=== PATIENT | female | born 1995 | race American Indian/Alaskan Native ===

== ENCOUNTER 2016-12-15 13:02 | Emergency (ER) | payer MEDICAID ==
[2016-12-15 14:57] LABS: Basophils % (Auto) 0.3 % (0.0-1.8); Mean Corpuscular HGB Conc 34 % (30-34); Mean Corpuscular Hemoglobin 28 pg (28-32); Mean Corpuscular Volume 82 fl (79-97); Platelet Count 306 K/mm3 (140-440); Red Blood Count 4.66 M/mm3 (3.65-5.03); Red Cell Distribution Width 13.4 % (13.2-15.2); White Blood Count 7.6 K/mm3 (4.5-11.0)
[2016-12-15 15:37] LABS: Bilirubin,Urine NEG (Negative); Blood,Urine NEG (Negative); Ketones,Urine TR mg/dL (Negative); Leukocyte Esterase,Urine LG (Negative); Mucus,Urine 3+ /HPF; Nitrite,Urine NEG (Negative)
[2016-12-15] MEDS ORDERED: TYLENOL PO ONE (20:29)
--- NOTE | 2016-12-15 20:49 | Emergency Department Report ---
HPI - General Chief Complaint: Vaginal Bleeding Time Seen by Provider: 12/15/16 20:10 - HPI HPI: This is a 21-year-old Afro-[place]ian female presents to the emergency department from home with complaint of severe lower abdominal cramping, some nausea and some vaginal spotting that began late last night or early this morning. The patient believes she is as she has had multiple positive home tests starting in October. Patient's last menstrual period was sometime in August. With this she would be with one live child. She does not currently have a [facility]. She has not taken anything for symptoms prior to presentation. She does not take any current vitamins. She denies any fever, back pain, vaginal discharge or dysuria. ED Past Medical Hx - Past Medical History Hx Asthma: Yes - Surgical History Additional Surgical History: x1 (2014) - Social History Smoking Status: Never Smoker Substance Use Type: None - Medications Home Medications: Home Medications Medication Instructions Recorded Confirmed Last Taken Type Ondansetron [Zofran ODT TAB] 4 mg PO Q6H PRN #20 tab.rapdis 02/20/15 Unknown Rx Phenazopyridine HCl [Pyridium] 200 mg PO TID #6 tablet 02/21/15 Unknown Rx Nitrofurantoin Clare/M-Cryst 100 mg PO Q12HR #14 capsule 12/15/16 Unknown Rx [Macrobid CAP] Fmv807/FA/Omega3/Dha/Fish Oil 1 each PO QDAY #30 tab.chew 12/15/16 Unknown Rx [ Gummies] ED Review of Systems ROS: Stated complaint: VAG BLEED Other details as noted in HPI Comment: All other systems reviewed and negative Constitutional: denies: chills, fever Eyes: denies: eye pain, eye discharge, vision change ENT: denies: ear pain, throat pain Respiratory: denies: cough, shortness of breath, wheezing Cardiovascular: denies: chest pain, palpitations Gastrointestinal: abdominal pain, nausea Genitourinary: other (vaginal bleeding). denies: urgency, dysuria, discharge Musculoskeletal: denies: back pain, joint swelling, arthralgia Skin: denies: rash, lesions Neurological: denies: headache, weakness, paresthesias Physical Exam - Physical Exam Vital Signs: Vital Signs 12/15/16 14:03 Temperature 98.1 F Pulse Rate 92 H Respiratory 20 Rate Blood Pressure 113/77 Blood Pressure 113/77 [Right] O2 Sat by Pulse 100 Oximetry Physical Exam: GENERAL: The patient is well-developed well-nourished. HEENT: Normocephalic. Atraumatic. Extraocular motions are intact. Patient has moist mucous membranes. Pupils equal reactive to light bilaterally. NECK: Supple. Trachea is midline. CHEST/LUNGS: Clear to auscultation. There is no respiratory distress noted. HEART/CARDIOVASCULAR: Regular. There is no tachycardia. There is no gallop rub or murmur. ABDOMEN: Abdomen is soft. Unable to reproduce patient's cramping or tenderness to palpation. Patient has normal bowel sounds. There is no abdominal distention. SKIN: Skin is warm and dry. NEURO: The patient is awake, alert, and oriented. The patient is cooperative. The patient has no focal neurologic deficits. The patient has normal speech. MUSCULOSKELETAL: There is no tenderness or deformity. There is no limitation range of motion. There is no evidence of acute injury. ED Course Vital Signs 12/15/16 14:03 Temperature 98.1 F Pulse Rate 92 H Respiratory 20 Rate Blood Pressure 113/77 Blood Pressure 113/77 [Right] O2 Sat by Pulse 100 Oximetry ED Medical Decision Making - Lab Data Result diagrams: 12/15/16 14:39 - Medical Decision Making 21-year-old female presents with some mild vaginal spotting and some abdominal cramping starting this morning. Her beta-hCG was about 93,000. Ultrasound shows live intrauterine at 12 weeks and 3 days. Urinalysis shows mild UTI but is also slightly contaminated. She'll be treated with some Macrobid, started on vitamins and given multiple referrals for [facility]. We discussed the diagnosis of threatened miscarriage. Patient is blood type positive and therefore does not need RhoGAM shot. She will return to the ER with any worsening of her symptoms or any acute distress. - Differential Diagnosis , threatened miscarriage, spontaneous miscarriage, fibroids, UTI Critical Care Time: No Critical care attestation.: If time is entered above; I have spent that time in minutes in the direct care of this critically ill patient, excluding procedure time. ED Disposition Clinical Impression: Threatened miscarriage, Abdominal cramping Qualifiers: Weeks of gestation: 12 weeks Qualified Code(s): Z3A.12 - 12 weeks gestation of Disposition: DISCHARGED TO HOME OR SELFCARE Is pt being admited?: No Condition: Stable Instructions: Threatened Miscarriage (ED), (ED) Additional Instructions: Please follow-up with a primary care and [facility] as soon as possible. Return to the emergency department with any worsening of your symptoms or any acute distress. Please start the vitamins. Take the antibiotics as prescribed. You can take Tylenol every 4 hours, using weight-based dosing, as needed for cramping or discomfort. Otherwise do not take any other medications that are not prescribed by a physician. Prescriptions: Nitrofurantoin Clare/M-Cryst [Macrobid CAP] 100 mg PO Q12HR #14 capsule Xlc210/FA/Omega3/Dha/Fish Oil [ Gummies] 1 each PO QDAY #30 tab.chew Referrals: PRIMARY CARE, [Primary Care Provider] - 3-5 Days [facility] [Provider Group] - 3-5 Days [facility] [Provider Group] - 3-5 Days [facility] [Provider Group] - 3-5 Days Time of Disposition: 22:55
[2016-12-15] MEDS ORDERED: MACROBID PO ONE (21:23)
--- NOTE | 2016-12-15 22:48 | Ultrasound Report ---
FINAL REPORT EXAM: US OB \T\lt; = 14 WEEKS FETUS HISTORY: , abd pain, bleeding TECHNIQUE: Transabdominal and transvaginal sonography of the pelvis. PRIORS: None. FINDINGS: There is a single, live intrauterine . Ultrasound estimated gestational age is 12 weeks 3 days. Ultrasound estimated date of confinement is 26 June 2017. heart motion is detected. Possible small, subchorionic hemorrhage measuring approximately 1.2 x 2.4 cm incidentally noted. The right ovary measures 3.6 x 1.8 x 2.8 cm and contains small, cystic focus measuring 1.4 cm. The left ovary measures 3.1 x 2.5 x 2.0 cm and is grossly unremarkable. Remainder of uterus and adnexa grossly unremarkable. IMPRESSION: 1. Single, live intrauterine .
--- NOTE | 2016-12-15 22:48 | Ultrasound Report ---
FINAL REPORT EXAM: US OB TRANSVAGINAL HISTORY: , abd pain, bleeding TECHNIQUE: Transabdominal and transvaginal sonography of the pelvis. PRIORS: None. FINDINGS: There is a single, live intrauterine . Ultrasound estimated gestational age is 12 weeks 3 days. Ultrasound estimated date of confinement is 26 June 2017. heart motion is detected. Possible small, subchorionic hemorrhage measuring approximately 1.2 x 2.4 cm incidentally noted. The right ovary measures 3.6 x 1.8 x 2.8 cm and contains small, cystic focus measuring 1.4 cm. The left ovary measures 3.1 x 2.5 x 2.0 cm and is grossly unremarkable. Remainder of uterus and adnexa grossly unremarkable. IMPRESSION: 1. Single, live intrauterine .
[2016-12-15 23:25] VITALS: BP 109/51
== END 2016-12-15 23:24 | disposition home or self-care (01) ==
LOC: ED 13:02
DX: O20.0 Threatened abortion (principal); Z3A.12 12 weeks gestation of pregnancy; R10.30 Lower abdominal pain, unspecified; J45.909 Unspecified asthma, uncomplicated
CPT/HCPCS: 36415; 76801; 76817; 81001; 84702; 85025; 86850; 86900; 86901; 99284

== ENCOUNTER 2019-01-18 17:16 | Emergency (ER) | payer MEDICAID, OTHER ==
--- NOTE | 2019-01-18 17:23 | Event Note ---
ED Screening Note ED Screening Note: pt presents for right knee pain that began yesterday had a fall onto the knee yesterday pt states she injured it two years ago, knee sprain never saw an orthopedic doctor difficulty ambulating no PMHx no allergies to meds LNMP: last week non smoker no drug use non drinker This initial assessment/diagnostic orders/clinical plan/treatment(s) is/are subject to change based on patients health status, clinical progression and re- assessment by fellow clinical providers in the ED. Further treatment and workup at subsequent clinical providers discretion. Patient/guardian urged not to elope from the ED as their condition may be serious if not clinically assessed and managed. Initial orders include: XR of the right knee
--- NOTE | 2019-01-18 18:21 | XRay Report ---
PROCEDURE: XR KNEE 3V RT TECHNIQUE: 3 radiographic views of the right knee HISTORY: fall onto right knee . While "play fighting" knee swollen for day. Sometimes "goes out" pt n ot able to stand on leg and unable to straighten out. COMPARISONS: None available at time of interpretation FINDINGS: There is no radiographic evidence of definite acute fracture or dislocation. No definite misalignment. No evidence of osseous lesion. Joint spaces are maintained. No evidence of synovial joint effusion. There is no evidence of significant arthrosis IMPRESSION: No definite radiographically visible acute skeletal pathology This document is electronically signed by Brady Sanchez MD., January 18 2019 06:19:34 PM ET
[2019-01-18] MEDS ORDERED: TYLENOL PO ONE (19:52)
[2019-01-18] MEDS ORDERED: IBUPROFEN PO ONE (19:52)
--- NOTE | 2019-01-18 20:35 | Emergency Department Report ---
ED Extremity Problem HPI - General Chief complaint: Extremity Injury, Lower Stated complaint: (R) KNEE PAIN Time Seen by Provider: 01/18/19 17:20 Source: patient Mode of arrival: Wheelchair Limitations: No Limitations - History of Present Illness Initial comments: Patient is a 23-year-old -[place] female with a history of asthma AND chronic right knee pain from an old injury several years ago presents to the ED with acute exacerbation of her chronic right knee pain for the last 24 hours after she twisted the right knee while playing basketball with her nephews and identifies ago. Patient states that she has not been able to bear weight on the right knee because of severe pain and mild swelling. Patient denies fall, traumatic injury, dizziness, hip pain, low back pain, nausea, vomiting, chest pain or shortness of breath, numbness, tingling or weakness of the right leg. MD Complaint: extremity pain (RIGHT KNEE), joint swelling (right knee), joint paint (right knee) -: Sudden, hour(s) (24) Location: right, lower extremity (right knee), knee (right) History of Same: Yes (chronic right knee pain from old injury, re-injured 24 hours ago) -: Yes arthralgia Radiation: none Severity scale (0 -10): 7 Quality: aching, sharp, constant Consistency: constant Improves with: nothing Worsens with: weight bearing, walking, exertion, palpation Associated Symptoms: denies other symptoms, arthralgias. denies: chest pain, shortness of breath, fever, myalgias, rash - Related Data Previous Rx's Medication Instructions Recorded Last Taken Type Ondansetron [Zofran ODT TAB] 4 mg PO Q6H PRN #20 tab.rapdis 02/20/15 Unknown Rx Phenazopyridine HCl [Pyridium] 200 mg PO TID #6 tablet 02/21/15 Unknown Rx Nitrofurantoin Horry/M-Cryst 100 mg PO Q12HR #14 capsule 12/15/16 Unknown Rx [Macrobid CAP] Pnv No.103/Folic/Om3s/Fish Oil 1 each PO QDAY #30 tab.chew 12/15/16 Unknown Rx [ Gummies] Ibuprofen [Motrin] 800 mg PO Q8HR PRN #24 tablet 01/18/19 Unknown Rx tiZANidine [Zanaflex 4mg TAB] 4 mg PO Q8H PRN #21 tablet 01/18/19 Unknown Rx traMADol [Ultram] 50 mg PO Q6HR PRN #15 tablet 01/18/19 Unknown Rx Allergies Allergy/AdvReac Type Severity Reaction Status Date / Time No Known Allergies Allergy Verified 02/20/15 17:01 ED Review of Systems ROS: Stated complaint: (R) KNEE PAIN Other details as noted in HPI Comment: All other systems reviewed and negative Constitutional: denies: chills, fever Eyes: denies: eye pain, eye discharge, vision change ENT: denies: ear pain, throat pain Respiratory: denies: cough, shortness of breath, wheezing Cardiovascular: denies: chest pain, palpitations Endocrine: no symptoms reported Gastrointestinal: denies: abdominal pain, nausea, diarrhea Genitourinary: denies: urgency, dysuria, discharge Musculoskeletal: joint swelling (right knee), arthralgia (right knee pain). denies: back pain Skin: denies: rash, lesions Neurological: denies: headache, weakness, paresthesias Psychiatric: denies: anxiety, depression Hematological/Lymphatic: denies: easy bleeding, easy bruising ED Past Medical Hx - Past Medical History Previous Medical History?: Yes Hx Asthma: Yes - Surgical History Past Surgical History?: Yes Additional Surgical History: x1 (2014) - Social History Smoking Status: Never Smoker Substance Use Type: None - Medications Home Medications: Home Medications Medication Instructions Recorded Confirmed Last Taken Type Ondansetron [Zofran ODT TAB] 4 mg PO Q6H PRN #20 tab.rapdis 02/20/15 Unknown Rx Phenazopyridine HCl [Pyridium] 200 mg PO TID #6 tablet 02/21/15 Unknown Rx Nitrofurantoin Horry/M-Cryst 100 mg PO Q12HR #14 capsule 12/15/16 Unknown Rx [Macrobid CAP] Pnv No.103/Folic/Om3s/Fish Oil 1 each PO QDAY #30 tab.chew 12/15/16 Unknown Rx [ Gummies] Ibuprofen [Motrin] 800 mg PO Q8HR PRN #24 tablet 01/18/19 Unknown Rx tiZANidine [Zanaflex 4mg TAB] 4 mg PO Q8H PRN #21 tablet 01/18/19 Unknown Rx traMADol [Ultram] 50 mg PO Q6HR PRN #15 tablet 01/18/19 Unknown Rx ED Physical Exam - General Limitations: No Limitations General appearance: alert, in no apparent distress - Head Head exam: Present: atraumatic, normocephalic, normal inspection - Eye Eye exam: Present: normal appearance, PERRL, EOMI. Absent: scleral icterus, conjunctival injection, periorbital swelling, periorbital tenderness - ENT ENT exam: Present: normal exam, normal orophraynx, mucous membranes moist, TM's normal bilaterally, normal external ear exam - Neck Neck exam: Present: normal inspection, full ROM. Absent: tenderness, lymphadenopathy - Respiratory Respiratory exam: Present: normal lung sounds bilaterally. Absent: respiratory distress, wheezes, rales, rhonchi, chest wall tenderness, decreased breath sounds - Cardiovascular Cardiovascular Exam: Present: regular rate, normal rhythm, normal heart sounds. Absent: systolic murmur, diastolic murmur, rubs, gallop - GI/Abdominal GI/Abdominal exam: Present: soft, normal bowel sounds. Absent: tenderness, hyperactive bowel sounds, hypoactive bowel sounds, organomegaly - Rectal Rectal exam: Present: deferred - Extremities Exam Extremities exam: Present: normal inspection, tenderness (right knee tenderness with limited ROM due to pain), normal capillary refill, joint swelling (right knee). Absent: full ROM (limited ROM due to pain in the right knee), calf tenderness - Expanded Lower Extremity Exam Right Knee exam: Present: normal inspection, tenderness, swelling, pain w/ pronation/supination, posterior draw sign, pain/laxity with valgus, pain/laxity with varus. Absent: full ROM, laceration, ecchymosis, deformity, dislocation, erythema 1 - Palpable right knee tenderness with limited ROM due to pain; mild joint swelling - Back Exam Back exam: Present: normal inspection, full ROM. Absent: tenderness, CVA tenderness (L), muscle spasm, paraspinal tenderness, vertebral tenderness - Neurological Exam Neurological exam: Present: alert, oriented X3, CN II-XII intact, normal gait, reflexes normal - Psychiatric Psychiatric exam: Present: normal affect, normal mood - Skin Skin exam: Present: warm, dry, intact, normal color. Absent: rash ED Course Vital Signs 01/18/19 17:20 Temperature 98.3 F Pulse Rate 67 Respiratory 20 Rate Blood Pressure 125/71 [Left] O2 Sat by Pulse 100 Oximetry - Reevaluation(s) Reevaluation #1: 01/18/19 20:37 Patient is alert and oriented 3 and is not in distress with normal vital signs. Right knee x-ray shows no acute fractures or subluxations. Patient was treated for pain in the ED and the right knee x-ray shows no acute fractrues or subluxations. The right knee was splinted wit Franky wrap and patient given crutches to aid in ambulation. The patient was discharged home on pain medications, and advised to follow up with her primary care physician in 5-7 days for reevaluation. Patient was also advised to return to the ED immediately if symptoms get worse. ED Medical Decision Making - Radiology Data Radiology results: report reviewed, image reviewed No acute fractures or subluxations - Medical Decision Making Patient is alert and oriented 3 and is not in distress with normal vital signs. Right knee x-ray shows no acute fractures or subluxations. Patient was treated for pain in the ED and the right knee x-ray shows no acute fractrues or subluxations. The patient's injuries though chronic is likely due to tendon and ligament inflammation from the twisting forces during the basketball. The right knee was splinted wit Franky wrap and patient given crutches to aid in ambulation. The patient was discharged home on pain medications, and advised to follow up with her primary care physician in 5-7 days for reevaluation. Patient was also advised to return to the ED immediately if symptoms get worse. - Differential Diagnosis chronic right knee pain; right knee sprain; knee ligament injuries Critical care attestation.: If time is entered above; I have spent that time in minutes in the direct care of this critically ill patient, excluding procedure time. ED Disposition Clinical Impression: Chronic pain of right knee Right knee sprain Qualifiers: Encounter type: initial encounter Involved ligament of knee: unspecified ligament Qualified Code(s): S83.91XA - Sprain of unspecified site of right knee, initial encounter Muscle strain of right knee Qualifiers: Encounter type: initial encounter Qualified Code(s): S86.911A - Strain of unspecified muscle(s) and tendon(s) at lower leg level, right leg, initial enco unter Disposition: TO HOME OR SELFCARE Is pt being admited?: No Does the pt Need Aspirin: No Condition: Stable Instructions: Muscle Strain (ED), Knee Sprain (ED), Knee Exercises (GEN), Chronic Pain (ED) Additional Instructions: Take medications with food, drink plenty of fluids and follow up with your primary care physician in 5-7 days for reevaluation. Return to the ED immediately if symptoms get worse. Consider following up with the orthopedic surgeon Dr. Ambrocio for further evaluation especially if his symptoms get worse. Otherwise return to the ED immediately if symptoms get worse. Prescriptions: Ibuprofen [Motrin] 800 mg PO Q8HR PRN #24 tablet PRN Reason: Pain , Severe (7-10) traMADol [Ultram] 50 mg PO Q6HR PRN #15 tablet PRN Reason: Pain tiZANidine [Zanaflex 4mg TAB] 4 mg PO Q8H PRN #21 tablet PRN Reason: Spasms Referrals: [facility] MD FREDDY [Primary Care Provider] - 3-5 Days ANUP AMBROCIO MD [Staff Physician] - 3-5 Days Time of Disposition: 20:44 Print Language: MOHAWK
[2019-01-18 21:14] VITALS: BP 124/78
== END 2019-01-18 21:15 | disposition home or self-care (01) ==
LOC: ED 17:16
DX: S83.91XA Sprain of unspecified site of right knee, initial encounter (principal); S86.911A Strain of unspecified muscle(s) and tendon(s) at lower leg level, right leg, initial encounter; J45.909 Unspecified asthma, uncomplicated; Z79.899 Other long term (current) drug therapy; X58.XXXA Exposure to other specified factors, initial encounter; Y93.67 Activity, basketball; Y92.89 Other specified places as the place of occurrence of the external cause; Y99.8 Other external cause status

== ENCOUNTER 2019-09-29 14:29 | Emergency (ER) | payer SELFPAY ==
[2019-09-29 15:51] VITALS: BP 106/42
[2019-09-29] MEDS ORDERED: IBUPROFEN 800 MG TAB PO ONE (15:54)
--- NOTE | 2019-09-29 15:58 | Emergency Department Report ---
Chief Complaint: Extremity Injury, Lower Stated Complaint: RIGHT KNEE PAIN Time Seen by Provider: 09/29/19 15:53 - HPI History of Present Illness: 24 y/o F p/w a cc of right knee pain and monthly premenstrual pain. Pt states she was in the bed when she rolled over and heard her right knee pop multiple times. Pt c/o pain with WB. Pt also states she's had right sided pelvic pain monthly for 2 years qwhenever her menses starts. Pt has not seen an orthopedic surgeon or dredge worker for the above complaints - Exam Vital Signs: Vital Signs 09/29/19 15:50 Temperature 98.6 F Pulse Rate 91 H Respiratory 20 Rate Blood Pressure 106/42 [Right] O2 Sat by Pulse 100 Oximetry MSE screening note: Focused history and physical exam performed. Due to findings the following was ordered: right knee xr ED Disposition for MSE Condition: Stable
== END 2019-09-29 19:40 | disposition left against medical advice (07) ==
LOC: ED 14:29
DX: M25.561 Pain in right knee (principal); Z53.21 Procedure and treatment not carried out due to patient leaving prior to being seen by health care provider